=== PATIENT | female | born 1945 | race Caucasian/White ===

== ENCOUNTER 2016-10-17 06:35 | Inpatient (IN) | payer OTHER ==
[~2016-10-17] VITALS: Ht 165.1 cm; Wt 129.3 kg
[~2016-10-17 06:35] MED LIST: ACETAMINOPHEN325 M1 PO; ALEVE220 MG PO; AMLODIPINE BES2.5 MG PO; Bactrim,Septra DS 80 PO; CEFDINIR300 MG PO; CEFTIN250 MG PO; CENTRUM SILVER1 EAC4 PO; CHOLESTYRAMINE; CHOLESTYRAMINE210 GM PO; DUONEB 2.5-0.5 M3 ML AEROSOL; ERGOCALCIF50000 UNIT PO; FLORASTOR250 MG PO; Feosol PO; GLUCO BURST37.5 GM PO; HUMULIN N100 UNITS/ SC; HUMULIN NP100 UNIT/1 SC; HYDROCHLOROTHIA25 MG PO; Hydrodiuril,Oretic,E PO; KETOCONAZOLE60 GM TP; LEVAQUIN750 MG PO; LEVOXYL125 MCG PO; LINEZOLID600 MG PO; LOMOTIL TABLET1 EACH PO; LYRICA150 MG PO; LYRICA50 MG PO; LYRICA75 MG PO; Levothroid,Synthroid PO; NOVOLIN N100 UNITS/ SC; NOVOLOG PE100 UNITS/ SC; OXYCODONE-APAP1 EACH PO; QUESTRAN4 GM/PACKE PO; SANTYL30 GM TP; SYNTHROID200 MCG PO; VANCOMYCIN1 GM/150 M IV; VITAMIN D2000 UNI1 PO; Vancocin Oral Soluti PO; Vitamin D, Drisdol PO; ZESTRIL,PRINIVI40 MG PO; ZESTRIL40 MG PO; ZINC SULFATE220 M1 PO; Zestril,Prinivil PO
[2016-10-17 07:08] VITALS: BP 118/56
[2016-10-17 07:16] LABS: POINT-OF-CARE METER ID UU14174212
[2016-10-17 08:25] LABS: METH RESISTANT S AUREUS PCR NEGATIVE (NEGATIVE)
[2016-10-17 08:28] LABS: PROBE CHECK PASS; SPECIMEN PROCESSING CONTROL PASS
[2016-10-17 09:54] LABS: POINT-OF-CARE METER ID UU13113675; POINT-OF-CARE USER ID ADMSLT55
[2016-10-17 14:51] VITALS: BP 142/62
[2016-10-17 16:23] LABS: POINT-OF-CARE METER ID UU14188577
[2016-10-17 19:57] VITALS: BP 152/68
[2016-10-17 22:20] LABS: POINT-OF-CARE METER ID UU14149397
[2016-10-18] VITALS (7 sets, daily range): BP systolic 126–155; BP diastolic 61–75
[2016-10-18 22:39] LABS: POINT-OF-CARE METER ID UU14188577
[2016-10-19 06:40] LABS: POINT-OF-CARE METER ID UU14149397
[2016-10-19 07:35] VITALS: BP 154/67
[2016-10-19 11:55] LABS: POINT-OF-CARE METER ID UU14149397
[2016-10-19 16:52] VITALS: BP 144/64
[2016-10-19 21:53] LABS: POINT-OF-CARE METER ID UU14149397
[2016-10-20 00:12] VITALS: BP 155/71
[2016-10-20 08:12] VITALS: BP 155/67
[2016-10-20] MEDS ORDERED: CIPROFLOXACIN500 M1 PO (11:12)
[2016-10-20] MEDS ORDERED: MOTRIN400 MG PO (11:13)
[2016-10-20 11:38] LABS: POINT-OF-CARE METER ID UU14149397; POINT-OF-CARE USER ID BHSLRM
== END 2016-10-20 15:29 | DRG 574 ==
LOC: SDC 06:35 → 3EAST 10:18 → 2SOUTH 10:18 → SDC 14:34 → 3EAST 14:44 → SDC 15:34 → 3EAST 10-20 15:29
PROVIDERS: Surgery Plastic and Reconstructive Surgery
DX: L97.529 Non-pressure chronic ulcer of other part of left foot with unspecified severity (principal); L03.116 Cellulitis of left lower limb; E11.9 Type 2 diabetes mellitus without complications; Z89.422 Acquired absence of other left toe(s); I10 Essential (primary) hypertension; E03.9 Hypothyroidism, unspecified; G62.9 Polyneuropathy, unspecified
CPT/HCPCS: 82948; 87641; 97530 GO; 97530 GP; C1763; J0131; J0690; J1650; J1815; J2405; J3010; J7050; J7120

== ENCOUNTER 2017-04-30 09:48 | Inpatient (IN) | payer OTHER ==
[~2017-04-30] VITALS: Ht 167.6 cm; Wt 143.5 kg
[~2017-04-30 09:48] MED LIST changes: +CIPROFLOXACIN500 M1 PO; +MOTRIN400 MG PO
[2017-04-30 10:31] LABS: ADD MIUA? YES; BILIRUBIN NEGATIVE; BLOOD SMALL; COLOR YELLOW ((YELLOW)); GLUCOSE (STRIP) NEGATIVE; KETONES NEGATIVE; LEUKOCYTES LARGE; NITRITE NEGATIVE; PROTEIN (STRIP) 100; SPECIFIC GRAVITY 1.019 (1.000-1.030); UROBILINOGEN 0.2 MG/DL (0.2-1.0)
[2017-04-30 10:41] LABS: BACTERIA RARE /HPF; EPITHELIAL CELLS RARE /HPF; MUCUS NONE SEEN /LPF; RED BLOOD CELLS 30-40 /HPF (0-5); UCUL ADDED? YES; WHITE BLOOD CELLS TNTC /HPF (0-5)
[2017-04-30 11:15] LABS: MEAN PLAT.VOLUME 10.5 uM^3 (9.5-12.4); PLATELET COUNT 211 K/uL (156-360)
[2017-04-30 11:25] LABS: CHLORIDE 104 mEq/L (99-109); MCH 28.5 PG (29.0-34.0); MCHC 32.5 G/DL (30.0-36.0); MCV 87.8 FL (83-99); RBC DIS.WIDTH-CV 13.4 % (11.8-14.6)
[2017-04-30 11:26] LABS: POTASSIUM 4.7 mEq/L (3.7-5.4); SODIUM 138 mEq/L (136-147)
[2017-04-30 11:27] LABS: GLUCOSE 264 mg/dL (70-99)
[2017-04-30 11:29] LABS: ANION GAP 11 MEQ/L (2-14)
[2017-04-30 11:31] LABS: GFR ESTIMATE (CALCULATED) 31 mL/min/
[2017-04-30 11:32] LABS: UREA NITROGEN (BUN) 31 mg/dL (9-23)
[2017-04-30 16:09] LABS: POINT-OF-CARE METER ID UU13113725
[2017-04-30 16:16] VITALS: BP 131/61
[2017-04-30 21:54] LABS: POINT-OF-CARE METER ID UU13113725
[2017-05-01 00:12] VITALS: BP 132/61
[2017-05-01 06:05] LABS: POINT-OF-CARE METER ID UU13113725
[2017-05-01 07:25] VITALS: BP 105/53
[2017-05-01 10:45] LABS: POINT-OF-CARE METER ID UU13113725
[2017-05-01 16:05] LABS: POINT-OF-CARE METER ID UU13113725
[2017-05-01 16:09] VITALS: BP 110/56
[2017-05-01 20:54] LABS: POINT-OF-CARE METER ID UU13113725
[2017-05-01 22:52] VITALS: BP 113/64
[2017-05-02 06:15] LABS: POINT-OF-CARE METER ID UU13113725
[2017-05-02 06:30] LABS: HEMATOCRIT 33.7 % (36.0-46.0); MCH 28.5 PG (29.0-34.0); MCHC 31.8 G/DL (30.0-36.0); MCV 89.6 FL (83-99); MEAN PLAT.VOLUME 10.5 uM^3 (9.5-12.4); PLATELET COUNT 174 K/uL (156-360); RBC DIS.WIDTH-CV 13.7 % (11.8-14.6); RED BLOOD COUNT 3.76 M/uL (3.80-5.20); WHITE BLOOD COUNT 11.8 K/uL (4.1-10.2)
[2017-05-02 06:56] LABS: ALKALINE PHOSPHATASE 61 IU/L (3-129); ANION GAP 10 MEQ/L (2-14); CHLORIDE 106 MEQ/L (99-109); GFR ESTIMATE (CALCULATED) 43 mL/min/; GLUCOSE 139 mg/dL (70-99); POTASSIUM 4.3 MEQ/L (3.7-5.4); SAMPLE HEMOLYSIS CHECK 0; SAMPLE ICTERIC CHECK 0; SAMPLE LIPEMIA CHECK 0; SODIUM 141 MEQ/L (136-147); TOTAL BILIRUBIN 0.6 MG/DL (0.0-1.0); UREA NITROGEN (BUN) 22 mg/dL (9-23)
[2017-05-02 07:10] VITALS: BP 137/65
[2017-05-02] MEDS ORDERED: CEFDINIR300 MG PO (07:49)
[2017-05-02 11:21] LABS: POINT-OF-CARE METER ID UU13113725
[2017-05-02 12:44] VITALS: BP 158/70
[2017-05-02 16:29] VITALS: BP 157/69
[2017-05-02 19:19] VITALS: BP 149/69
[2017-05-02 21:30] LABS: POINT-OF-CARE METER ID UU13113725
[2017-05-02 23:25] VITALS: BP 127/80
[2017-05-03 06:40] LABS: HEMATOCRIT 33.6 % (36.0-46.0); MCV 90.3 FL (83-99); MEAN PLAT.VOLUME 11.1 uM^3 (9.5-12.4); PLATELET COUNT 200 K/uL (156-360); RBC DIS.WIDTH-CV 13.3 % (11.8-14.6); RBC DIS.WIDTH-SD 43.8 % (39-53); RED BLOOD COUNT 3.72 M/uL (3.80-5.20); WHITE BLOOD COUNT 12.2 K/uL (4.1-10.2)
[2017-05-03 07:04] LABS: ALKALINE PHOSPHATASE 68 IU/L (3-129); ANION GAP 9 MEQ/L (2-14); CHLORIDE 108 MEQ/L (99-109); GFR ESTIMATE (CALCULATED) 47 mL/min/; GLUCOSE 142 mg/dL (70-99); POTASSIUM 4.2 MEQ/L (3.7-5.4); SAMPLE HEMOLYSIS CHECK 0; SAMPLE ICTERIC CHECK 0; SAMPLE LIPEMIA CHECK 0; SODIUM 144 MEQ/L (136-147); TOTAL BILIRUBIN 0.6 MG/DL (0.0-1.0); UREA NITROGEN (BUN) 19 mg/dL (9-23)
[2017-05-03 07:14] VITALS: BP 156/69
[2017-05-03 11:31] LABS: POINT-OF-CARE METER ID UU13113725
[2017-05-03 11:32] VITALS: BP 142/65
== END 2017-05-03 13:57 | DRG 690 ==
LOC: EME → EDBD 09:48 → EME 09:48 → ENRESERV 12:32 → 5EAST 12:33 → EDOF 12:33 → ENRESERV 13:05 → 5EAST 14:59 → ENPENDDIS 05-02 → 5EAST 05-03 13:57
PROVIDERS: Emergency Medicine; Internal Medicine
DX: N39.0 Urinary tract infection, site not specified (principal); E66.01 Morbid (severe) obesity due to excess calories; Z68.43 Body mass index [BMI] 50.0-59.9, adult; Z89.412 Acquired absence of left great toe; Z89.422 Acquired absence of other left toe(s); E03.9 Hypothyroidism, unspecified; E11.22 Type 2 diabetes mellitus with diabetic chronic kidney disease; E11.40 Type 2 diabetes mellitus with diabetic neuropathy, unspecified; I12.9 Hypertensive chronic kidney disease with stage 1 through stage 4 chronic kidney disease, or unspecified chronic kidney disease; T81.89XA Other complications of procedures, not elsewhere classified, initial encounter; N18.9 Chronic kidney disease, unspecified; N17.9 Acute kidney failure, unspecified; L03.116 Cellulitis of left lower limb; E78.5 Hyperlipidemia, unspecified; Z79.4 Long term (current) use of insulin; Y83.5 Amputation of limb(s) as the cause of abnormal reaction of the patient, or of later complication, without mention of misadventure at the time of the procedure
CPT/HCPCS: 73720; 80048; 80053; 81003; 82948; 83605; 85027; 87040; 87086; 94799; 99281; 99285; J0696; J1644; J1815; J1956; J2270; J7030; J7050

== ENCOUNTER 2018-01-08 10:52 | Inpatient (IN) | payer OTHER ==
[~2018-01-08] VITALS: Ht 165.1 cm; Wt 151.1 kg
[2018-01-08 11:27] LABS: HEMATOCRIT 38.3 % (36.0-46.0); MCH 28.2 PG (29.0-34.0); MCHC 31.3 G/DL (30.0-36.0); MCV 89.9 FL (83-99); PLATELET COUNT 318 K/uL (156-360); RBC DIS.WIDTH-CV 13.7 % (11.8-14.6); RBC DIS.WIDTH-SD 44.5 % (39-53); RED BLOOD COUNT 4.26 M/uL (3.80-5.20); WHITE BLOOD COUNT 12.7 K/uL (4.1-10.2)
[2018-01-08 11:36] LABS: CHLORIDE 107 mEq/L (99-109); POTASSIUM 5.7 mEq/L (3.7-5.4); SODIUM 143 mEq/L (136-147)
[2018-01-08 11:37] LABS: GLUCOSE 238 mg/dL (70-99)
[2018-01-08 11:41] LABS: CREATININE 1.5 mg/dL (0.6-1.3); GFR ESTIMATE (CALCULATED) 36 mL/min/
[2018-01-08 11:42] LABS: UREA NITROGEN (BUN) 33 mg/dL (9-23)
[2018-01-08 13:31] LABS: TROP-I INTERPRETATION NEGATIVE; TROPONIN-I < 0.01 ng/mL (0.0-0.30)
[2018-01-08] MEDS ORDERED: LASIX20 MG PO (19:47)
[2018-01-08 22:00] LABS: TROP-I INTERPRETATION NEGATIVE; TROPONIN-I < 0.01 ng/mL (0.0-0.30)
[2018-01-09] VITALS: BP 134/72
[2018-01-09 02:50] LABS: HEMATOCRIT 38.4 % (36.0-46.0); HEMOGLOBIN 11.7 G/DL (11.9-15.5); MCH 27.3 PG (29.0-34.0); MCHC 30.5 G/DL (30.0-36.0); MCV 89.5 FL (83-99); PLATELET COUNT 329 K/uL (156-360); RBC DIS.WIDTH-CV 13.7 % (11.8-14.6); RBC DIS.WIDTH-SD 44.6 % (39-53); RED BLOOD COUNT 4.29 M/uL (3.80-5.20); WHITE BLOOD COUNT 12.2 K/uL (4.1-10.2)
[2018-01-09 03:07] LABS: ALBUMIN 3.4 g/dL (3.2-4.8)
[2018-01-09 03:08] LABS: POTASSIUM 4.7 mEq/L (3.7-5.4)
[2018-01-09 03:09] LABS: CHLORIDE 104 mEq/L (99-109); POTASSIUM 4.9 mEq/L (3.7-5.4); SODIUM 143 mEq/L (136-147)
[2018-01-09 03:10] LABS: TOTAL PROTEIN 6.8 g/dL (6.4-8.3)
[2018-01-09 03:11] LABS: GLUCOSE 152 mg/dL (70-99)
[2018-01-09 03:12] LABS: TOTAL BILIRUBIN 0.4 mg/dL (0.0-1.0)
[2018-01-09 03:13] LABS: ALKALINE PHOSPHATASE 75 IU/L (3-129)
[2018-01-09 03:15] LABS: CREATININE 1.6 mg/dL (0.6-1.3); GFR ESTIMATE (CALCULATED) 34 mL/min/
[2018-01-09 03:16] LABS: ALT (GPT) 33 IU/L (3-49); AST (GOT) 46 IU/L (2-34); DIRECT BILIRUBIN 0.2 mg/dL (0.0-0.3); UREA NITROGEN (BUN) 34 mg/dL (9-23)
[2018-01-09 03:23] LABS: TROP-I INTERPRETATION NEGATIVE; TROPONIN-I < 0.01 ng/mL (0.0-0.30)
[2018-01-09 04:00] VITALS: BP 124/63
[2018-01-09 08:18] VITALS: BP 130/59
[2018-01-09 08:25] LABS: APPEARANCE SL.HAZY ((CLEAR)); BILIRUBIN NEGATIVE; BLOOD NEGATIVE; COLOR STRAW ((YELLOW)); GLUCOSE (STRIP) NEGATIVE; KETONES NEGATIVE; LEUKOCYTES MODERATE; NITRITE NEGATIVE; PROTEIN (STRIP) NEGATIVE; SPECIFIC GRAVITY 1.014 (1.000-1.030); UROBILINOGEN 0.2 MG/DL (0.2-1.0)
[2018-01-09 08:36] LABS: BACTERIA 1+ /HPF; EPITHELIAL CELLS RARE /HPF; MUCUS TRACE /LPF; RED BLOOD CELLS 0-5 /HPF (0-5); UCUL ADDED? YES; WHITE BLOOD CELLS 30-40 /HPF (0-5)
[2018-01-09 12:01] VITALS: BP 129/62
[2018-01-09 16:12] VITALS: BP 135/70
[2018-01-09 19:45] VITALS: BP 139/70
[2018-01-10 01:26] VITALS: BP 128/68
[2018-01-10 03:28] VITALS: BP 146/74
[2018-01-10 05:25] LABS: BASOPHIL (%) 0.7 % (0-1); BASOPHIL COUNT 0.1 K/uL (0-0.1); EOSINOPHIL COUNT 0.3 K/uL (0-0.3); HEMATOCRIT 36.2 % (36.0-46.0); IMMATURE GRANULOCYTE (%) 0.8 % (0.0-0.7); LYMPHOCYTE COUNT 1.9 K/uL (1.0-2.8); MCH 27.3 PG (29.0-34.0); MCHC 30.4 G/DL (30.0-36.0); MCV 89.8 FL (83-99); MONOCYTE (%) 14.3 % (3-12); MONOCYTE COUNT 1.6 K/uL (0-0.8); NEUTROPHIL (%) 64.2 % (45-76); PLATELET COUNT 291 K/uL (156-360); RBC DIS.WIDTH-CV 13.6 % (11.8-14.6); RBC DIS.WIDTH-SD 44.7 % (39-53); RED BLOOD COUNT 4.03 M/uL (3.80-5.20); WHITE BLOOD COUNT 10.9 K/uL (4.1-10.2)
[2018-01-10 05:57] LABS: CHLORIDE 104 MEQ/L (99-109); CREATININE 1.7 MG/DL (0.6-1.3); GFR ESTIMATE (CALCULATED) 31 mL/min/; POTASSIUM 4.5 MEQ/L (3.7-5.4); SODIUM 141 MEQ/L (136-147); UREA NITROGEN (BUN) 36 mg/dL (9-23)
[2018-01-10 06:02] LABS: GLUCOSE 112 mg/dL (70-99)
[2018-01-10 12:49] VITALS: BP 131/67
[2018-01-10 14:28] LABS: INTER. NORMALIZED RATIO 1.3
[2018-01-10 14:31] LABS: PTT 29.3 SEC (25-37)
[2018-01-10 16:06] VITALS: BP 122/61
[2018-01-10 19:37] VITALS: BP 140/69
[2018-01-10 23:50] VITALS: BP 147/76
[2018-01-11 04:01] VITALS: BP 143/71
[2018-01-11 05:50] LABS: BASOPHIL (%) 0.4 % (0-1); EOSINOPHIL (%) 2.9 % (0-5); EOSINOPHIL COUNT 0.3 K/uL (0-0.3); HEMATOCRIT 37.3 % (36.0-46.0); HEMOGLOBIN 11.2 G/DL (11.9-15.5); LYMPHOCYTE (%) 16.1 % (15-42); LYMPHOCYTE COUNT 1.8 K/uL (1.0-2.8); MCH 26.6 PG (29.0-34.0); MCV 88.6 FL (83-99); MONOCYTE (%) 15.5 % (3-12); MONOCYTE COUNT 1.7 K/uL (0-0.8); NEUTROPHIL (%) 64.1 % (45-76); PLATELET COUNT 339 K/uL (156-360); RBC DIS.WIDTH-CV 13.3 % (11.8-14.6); RBC DIS.WIDTH-SD 43.3 % (39-53); RED BLOOD COUNT 4.21 M/uL (3.80-5.20); WHITE BLOOD COUNT 10.9 K/uL (4.1-10.2)
[2018-01-11 06:14] LABS: CHLORIDE 101 MEQ/L (99-109); CREATININE 1.7 MG/DL (0.6-1.3); GFR ESTIMATE (CALCULATED) 31 mL/min/; GLUCOSE 93 mg/dL (70-99); POTASSIUM 4.5 MEQ/L (3.7-5.4); SODIUM 141 MEQ/L (136-147); UREA NITROGEN (BUN) 36 mg/dL (9-23)
[2018-01-11 07:47] VITALS: BP 134/65
[2018-01-11 09:50] VITALS: BP 128/77
[2018-01-11 15:58] VITALS: BP 145/72
[2018-01-11 19:58] VITALS: BP 124/63
[2018-01-12] VITALS (7 sets, daily range): BP systolic 115–145; BP diastolic 54–67
[2018-01-12 05:37] LABS: BASOPHIL (%) 0.6 % (0-1); BASOPHIL COUNT 0.1 K/uL (0-0.1); EOSINOPHIL (%) 2.3 % (0-5); EOSINOPHIL COUNT 0.3 K/uL (0-0.3); HEMATOCRIT 36.7 % (36.0-46.0); HEMOGLOBIN 11.2 G/DL (11.9-15.5); IMMATURE GRANULOCYTE (%) 1.1 % (0.0-0.7); LYMPHOCYTE (%) 16.4 % (15-42); LYMPHOCYTE COUNT 1.9 K/uL (1.0-2.8); MCHC 30.5 G/DL (30.0-36.0); MCV 88.4 FL (83-99); MONOCYTE (%) 16.8 % (3-12); MONOCYTE COUNT 1.9 K/uL (0-0.8); NEUTROPHIL (%) 62.8 % (45-76); NEUTROPHIL COUNT 7.1 K/uL (1.8-6.4); PLATELET COUNT 305 K/uL (156-360); RBC DIS.WIDTH-CV 13.5 % (11.8-14.6); RED BLOOD COUNT 4.15 M/uL (3.80-5.20); WHITE BLOOD COUNT 11.3 K/uL (4.1-10.2)
[2018-01-12 06:01] LABS: ALBUMIN 3.1 G/DL (3.2-4.8); ALKALINE PHOSPHATASE 59 IU/L (3-129); ALT (GPT) 22 IU/L (3-49); AST (GOT) 36 IU/L (2-34); CHLORIDE 103 MEQ/L (99-109); CREATININE 1.7 MG/DL (0.6-1.3); GFR ESTIMATE (CALCULATED) 31 mL/min/; GLUCOSE 113 mg/dL (70-99); POTASSIUM 4.4 MEQ/L (3.7-5.4); SODIUM 143 MEQ/L (136-147); TOTAL BILIRUBIN 0.5 MG/DL (0.0-1.0); TOTAL PROTEIN 6.1 G/DL (6.4-8.3); UREA NITROGEN (BUN) 40 mg/dL (9-23)
[2018-01-13 04:48] VITALS: BP 128/63
[2018-01-13 08:00] VITALS: BP 122/56
[2018-01-13 09:48] LABS: CHLORIDE 101 MEQ/L (99-109); CREATININE 1.7 MG/DL (0.6-1.3); GFR ESTIMATE (CALCULATED) 31 mL/min/; GLUCOSE 105 mg/dL (70-99); POTASSIUM 4.6 MEQ/L (3.7-5.4); SODIUM 142 MEQ/L (136-147); UREA NITROGEN (BUN) 43 mg/dL (9-23)
[2018-01-13 11:24] VITALS: BP 127/70
[2018-01-13] MEDS ORDERED: FUROSEMIDE40 MG PO (12:45)
== END 2018-01-13 15:53 | disposition home or self-care (01) | DRG 189 ==
LOC: EME 10:52 → EDOF 20:38 → 5SOUTH 20:38 → EDOF 20:38 → ENRESERV 20:42 → 5SOUTH 21:49
PROVIDERS: Hospitalist; Internal Medicine; Internal Medicine Hematology & Oncology; Internal Medicine Nephrology; Physician Assistant
PROC: B246ZZZ Ultrasonography of Right and Left Heart (ICD-10-PCS; principal; 2018-01-09)
PROC: 0DBU3ZX Excision of Omentum, Percutaneous Approach, Diagnostic (ICD-10-PCS; 2018-01-11)
DX: J81.1 Chronic pulmonary edema (principal); J96.01 Acute respiratory failure with hypoxia; E66.01 Morbid (severe) obesity due to excess calories; Z68.43 Body mass index [BMI] 50.0-59.9, adult; C78.6 Secondary malignant neoplasm of retroperitoneum and peritoneum; E03.9 Hypothyroidism, unspecified; N17.9 Acute kidney failure, unspecified; N14.1 Nephropathy induced by other drugs, medicaments and biological substances; T50.8X5A Adverse effect of diagnostic agents, initial encounter; T50.1X5A Adverse effect of loop [high-ceiling] diuretics, initial encounter; E87.5 Hyperkalemia; E11.22 Type 2 diabetes mellitus with diabetic chronic kidney disease; I12.9 Hypertensive chronic kidney disease with stage 1 through stage 4 chronic kidney disease, or unspecified chronic kidney disease; N18.3 Chronic kidney disease, stage 3 (moderate); J43.9 Emphysema, unspecified; E78.5 Hyperlipidemia, unspecified; E11.621 Type 2 diabetes mellitus with foot ulcer; L97.521 Non-pressure chronic ulcer of other part of left foot limited to breakdown of skin; L30.8 Other specified dermatitis; E11.51 Type 2 diabetes mellitus with diabetic peripheral angiopathy without gangrene; I87.8 Other specified disorders of veins; L97.819 Non-pressure chronic ulcer of other part of right lower leg with unspecified severity; Z86.19 Personal history of other infectious and parasitic diseases; E11.65 Type 2 diabetes mellitus with hyperglycemia; E11.40 Type 2 diabetes mellitus with diabetic neuropathy, unspecified; R79.1 Abnormal coagulation profile; I89.0 Lymphedema, not elsewhere classified; R32 Unspecified urinary incontinence; Z86.14 Personal history of Methicillin resistant Staphylococcus aureus infection; K57.90 Diverticulosis of intestine, part unspecified, without perforation or abscess without bleeding; Z89.412 Acquired absence of left great toe; Z90.49 Acquired absence of other specified parts of digestive tract; Z82.49 Family history of ischemic heart disease and other diseases of the circulatory system; Z80.3 Family history of malignant neoplasm of breast; Z80.42 Family history of malignant neoplasm of prostate
CPT/HCPCS: 71045; 71046; 71275; 74176; 77012; 80048; 80053; 80076; 81003; 82948; 84132 91; 84484; 85025; 85027; 85379; 85610; 85730; 87086; 88305; 88341 TC; 88342 TC; 93005; 93306; 93970; 94640; 94799; 97597; 99202; 99212 25; 99281; 99285; G0378; J1644; J1815; J1940; J3010

== ENCOUNTER 2018-01-29 13:41 | Inpatient (IN) | payer OTHER ==
[~2018-01-29] VITALS: Ht 165.1 cm; Wt 157.7 kg
[~2018-01-29 13:41] MED LIST changes: +FUROSEMIDE40 MG PO; +LASIX20 MG PO
[2018-01-29 14:52] LABS: HEMATOCRIT 37.1 % (36.0-46.0); HEMOGLOBIN 11.2 G/DL (11.9-15.5); MCH 26.9 PG (29.0-34.0); MCHC 30.2 G/DL (30.0-36.0); PLATELET COUNT 323 K/uL (156-360); RBC DIS.WIDTH-CV 14.3 % (11.8-14.6); RBC DIS.WIDTH-SD 45.8 % (39-53); RED BLOOD COUNT 4.17 M/uL (3.80-5.20)
[2018-01-29 15:02] LABS: CHLORIDE 106 mEq/L (99-109); POTASSIUM 5.6 mEq/L (3.7-5.4); SODIUM 143 mEq/L (136-147)
[2018-01-29 15:04] LABS: GLUCOSE 213 mg/dL (70-99)
[2018-01-29 15:08] LABS: CREATININE 1.9 mg/dL (0.6-1.3); GFR ESTIMATE (CALCULATED) 28 mL/min/
[2018-01-29 15:09] LABS: UREA NITROGEN (BUN) 56 mg/dL (9-23)
[2018-01-29 15:11] LABS: TROP-I INTERPRETATION NEGATIVE; TROPONIN-I < 0.01 ng/mL (0.0-0.30)
[2018-01-29] MEDS ORDERED: QUESTRAN PACKET4 GM PO (18:34)
[2018-01-29] MEDS ORDERED: TYLENOL EXTRA500 MG PO (18:35)
[2018-01-29 19:52] VITALS: BP 98/51
[2018-01-29 20:58] VITALS: BP 110/66
[2018-01-29 21:57] LABS: TROP-I INTERPRETATION NEGATIVE; TROPONIN-I 0.01 ng/mL (0.0-0.30)
[2018-01-30] VITALS (7 sets, daily range): BP systolic 122–160; BP diastolic 61–74
[2018-01-30 02:31] LABS: HEMOGLOBIN 11.3 G/DL (11.9-15.5); MCH 27.8 PG (29.0-34.0); MCHC 30.5 G/DL (30.0-36.0); MCV 91.1 FL (83-99); PLATELET COUNT 286 K/uL (156-360); RBC DIS.WIDTH-CV 14.2 % (11.8-14.6); RBC DIS.WIDTH-SD 47.3 % (39-53); RED BLOOD COUNT 4.06 M/uL (3.80-5.20); WHITE BLOOD COUNT 12.7 K/uL (4.1-10.2)
[2018-01-30 02:48] LABS: CHLORIDE 106 mEq/L (99-109); POTASSIUM 5.7 mEq/L (3.7-5.4); SODIUM 145 mEq/L (136-147)
[2018-01-30 02:50] LABS: GLUCOSE 178 mg/dL (70-99)
[2018-01-30 02:54] LABS: CREATININE 1.7 mg/dL (0.6-1.3); GFR ESTIMATE (CALCULATED) 31 mL/min/
[2018-01-30 02:55] LABS: UREA NITROGEN (BUN) 55 mg/dL (9-23)
[2018-01-30 03:01] LABS: TROP-I INTERPRETATION NEGATIVE; TROPONIN-I < 0.01 ng/mL (0.0-0.30)
[2018-01-31 03:16] VITALS: BP 129/62
[2018-01-31 06:13] LABS: HEMATOCRIT 38.6 % (36.0-46.0); HEMOGLOBIN 11.3 G/DL (11.9-15.5); MCH 26.3 PG (29.0-34.0); MCHC 29.3 G/DL (30.0-36.0); MCV 89.8 FL (83-99); PLATELET COUNT 270 K/uL (156-360); RBC DIS.WIDTH-CV 14.2 % (11.8-14.6); RBC DIS.WIDTH-SD 46.1 % (39-53); WHITE BLOOD COUNT 8.1 K/uL (4.1-10.2)
[2018-01-31 06:36] LABS: ALBUMIN 3.1 G/DL (3.2-4.8); CHLORIDE 103 MEQ/L (99-109); CREATININE 1.6 MG/DL (0.6-1.3); GFR ESTIMATE (CALCULATED) 34 mL/min/; GLUCOSE 168 mg/dL (70-99); PHOSPHORUS 5.2 mg/dL (2.5-4.9); POTASSIUM 4.7 MEQ/L (3.7-5.4); SODIUM 144 MEQ/L (136-147); UREA NITROGEN (BUN) 52 mg/dL (9-23)
[2018-01-31 07:25] VITALS: BP 99/51
[2018-01-31 10:30] LABS: TYPE OF FLUID PARACENTESIS
[2018-01-31 11:07] LABS: BODY FLUID GLUCOSE 189 MG/DL; BODY FLUID PROTEIN 3.8 G/DL
[2018-01-31 11:37] LABS: APPEARANCE HAZY-YELLOW; BODY FLUID EOSINOPHILS 0 % (0-25); BODY FLUID RBC'S 8000 /MM^3 (0-100); BODY FLUID WBC'S 1163 /MM^3 (0-500); MONONUCLEAR WBC'S 98 %; POLYNUCLEAR WBC'S 2 % (0-25)
[2018-01-31 13:49] LABS: BODY FLUID LDH 251 IU/L
[2018-01-31 15:00] VITALS: BP 98/52
[2018-01-31 19:01] VITALS: BP 125/64
[2018-01-31 22:35] VITALS: BP 109/51
[2018-02-01 03:20] VITALS: BP 130/60
[2018-02-01 06:36] LABS: BASOPHIL (%) 0.2 % (0-1); EOSINOPHIL (%) 0.4 % (0-5); HEMATOCRIT 36.1 % (36.0-46.0); HEMOGLOBIN 10.8 G/DL (11.9-15.5); IMMATURE GRANULOCYTE (%) 0.7 % (0.0-0.7); LYMPHOCYTE (%) 12.5 % (15-42); LYMPHOCYTE COUNT 1.4 K/uL (1.0-2.8); MCH 26.5 PG (29.0-34.0); MCHC 29.9 G/DL (30.0-36.0); MCV 88.7 FL (83-99); MONOCYTE (%) 12.5 % (3-12); MONOCYTE COUNT 1.4 K/uL (0-0.8); NEUTROPHIL (%) 73.7 % (45-76); NEUTROPHIL COUNT 8.1 K/uL (1.8-6.4); PLATELET COUNT 313 K/uL (156-360); RBC DIS.WIDTH-CV 13.9 % (11.8-14.6); RBC DIS.WIDTH-SD 44.5 % (39-53); RED BLOOD COUNT 4.07 M/uL (3.80-5.20)
[2018-02-01 07:11] LABS: CHLORIDE 103 MEQ/L (99-109); CREATININE 1.5 MG/DL (0.6-1.3); GFR ESTIMATE (CALCULATED) 36 mL/min/; POTASSIUM 4.3 MEQ/L (3.7-5.4); SODIUM 145 MEQ/L (136-147); UREA NITROGEN (BUN) 59 mg/dL (9-23)
[2018-02-01 07:13] LABS: GLUCOSE 75 mg/dL (70-99)
[2018-02-01 07:30] VITALS: BP 119/63
[2018-02-01 11:30] VITALS: BP 130/59
[2018-02-01 15:00] VITALS: BP 123/59
[2018-02-01 19:13] VITALS: BP 116/57
[2018-02-01 23:58] VITALS: BP 113/55
[2018-02-02 03:53] VITALS: BP 129/62
[2018-02-02 07:48] VITALS: BP 130/65
[2018-02-02 16:37] VITALS: BP 133/68
[2018-02-02 23:26] VITALS: BP 100/53
[2018-02-03 05:59] LABS: BASOPHIL (%) 0.3 % (0-1); EOSINOPHIL (%) 0.6 % (0-5); EOSINOPHIL COUNT 0.1 K/uL (0-0.3); HEMATOCRIT 40.4 % (36.0-46.0); HEMOGLOBIN 12.2 G/DL (11.9-15.5); LYMPHOCYTE (%) 13.4 % (15-42); LYMPHOCYTE COUNT 1.6 K/uL (1.0-2.8); MCH 26.8 PG (29.0-34.0); MCHC 30.2 G/DL (30.0-36.0); MCV 88.6 FL (83-99); MONOCYTE (%) 14.1 % (3-12); MONOCYTE COUNT 1.7 K/uL (0-0.8); NEUTROPHIL (%) 70.6 % (45-76); NEUTROPHIL COUNT 8.4 K/uL (1.8-6.4); PLATELET COUNT 331 K/uL (156-360); RBC DIS.WIDTH-CV 14.2 % (11.8-14.6); RBC DIS.WIDTH-SD 45.8 % (39-53); RED BLOOD COUNT 4.56 M/uL (3.80-5.20); WHITE BLOOD COUNT 11.9 K/uL (4.1-10.2)
[2018-02-03 06:26] LABS: ALBUMIN 3.2 G/DL (3.2-4.8); ALKALINE PHOSPHATASE 75 IU/L (3-129); ALT (GPT) 23 IU/L (3-49); AST (GOT) 36 IU/L (2-34); CHLORIDE 103 MEQ/L (99-109); CREATININE 1.4 MG/DL (0.6-1.3); GFR ESTIMATE (CALCULATED) 39 mL/min/; SODIUM 143 MEQ/L (136-147); TOTAL BILIRUBIN 0.4 MG/DL (0.0-1.0); TOTAL PROTEIN 6.1 G/DL (6.4-8.3); UREA NITROGEN (BUN) 55 mg/dL (9-23)
[2018-02-03 06:27] LABS: GLUCOSE 104 mg/dL (70-99); POTASSIUM 5.2 MEQ/L (3.7-5.4)
[2018-02-03 07:31] VITALS: BP 125/88
[2018-02-03 16:20] VITALS: BP 106/54
[2018-02-03 21:43] VITALS: BP 130/63
[2018-02-04] VITALS (7 sets, daily range): BP systolic 121–135; BP diastolic 57–74
[2018-02-04] MEDS ORDERED: DITROPAN5 MG PO (12:25)
[2018-02-05 02:13] VITALS: BP 131/71
[2018-02-05 05:29] VITALS: BP 138/72
[2018-02-05 06:13] LABS: BASOPHIL (%) 0.4 % (0-1); BASOPHIL COUNT 0.1 K/uL (0-0.1); EOSINOPHIL (%) 2.2 % (0-5); EOSINOPHIL COUNT 0.3 K/uL (0-0.3); HEMATOCRIT 40.9 % (36.0-46.0); HEMOGLOBIN 12.1 G/DL (11.9-15.5); IMMATURE GRANULOCYTE (%) 1.4 % (0.0-0.7); LYMPHOCYTE (%) 13.1 % (15-42); LYMPHOCYTE COUNT 1.7 K/uL (1.0-2.8); MCH 25.9 PG (29.0-34.0); MCHC 29.6 G/DL (30.0-36.0); MCV 87.6 FL (83-99); MONOCYTE (%) 15.2 % (3-12); NEUTROPHIL (%) 67.7 % (45-76); NEUTROPHIL COUNT 8.8 K/uL (1.8-6.4); PLATELET COUNT 336 K/uL (156-360); RBC DIS.WIDTH-CV 14.1 % (11.8-14.6); RBC DIS.WIDTH-SD 44.9 % (39-53); RED BLOOD COUNT 4.67 M/uL (3.80-5.20)
[2018-02-05 06:38] LABS: CHLORIDE 103 MEQ/L (99-109); CREATININE 1.3 MG/DL (0.6-1.3); GFR ESTIMATE (CALCULATED) 43 mL/min/; GLUCOSE 94 mg/dL (70-99); POTASSIUM 4.9 MEQ/L (3.7-5.4); SODIUM 142 MEQ/L (136-147); UREA NITROGEN (BUN) 59 mg/dL (9-23)
[2018-02-05 07:31] VITALS: BP 146/68
[2018-02-05 11:24] VITALS: BP 101/51
[2018-02-05] MEDS ORDERED: Ocean Nasal 0.65% BOTH NARES (14:40)
[2018-02-05] MEDS ORDERED: BUMETANIDE1 MG PO (14:40)
[2018-02-05] MEDS ORDERED: Zeasorb Antifungal T TP (14:41)
[2018-02-05] MEDS ORDERED: ASPIRIN81 M2 PO (14:47)
[2018-02-05 16:14] VITALS: BP 133/61
== END 2018-02-05 18:05 | DRG 189 ==
LOC: EME 13:41 → EDOF 18:26 → 5EAST 18:26 → ENRESERV 18:28 → 5EAST 19:45
PROVIDERS: Emergency Medicine; Hospitalist; Internal Medicine; Internal Medicine Nephrology; Internal Medicine Pulmonary Disease
PROC: 0W9G3ZZ Drainage of Peritoneal Cavity, Percutaneous Approach (ICD-10-PCS; principal; 2018-01-31)
DX: J96.01 Acute respiratory failure with hypoxia (principal); E66.01 Morbid (severe) obesity due to excess calories; S82.832A Other fracture of upper and lower end of left fibula, initial encounter for closed fracture; J44.0 Chronic obstructive pulmonary disease with (acute) lower respiratory infection; I10 Essential (primary) hypertension; E78.5 Hyperlipidemia, unspecified; E03.9 Hypothyroidism, unspecified; J44.9 Chronic obstructive pulmonary disease, unspecified; I50.30 Unspecified diastolic (congestive) heart failure; C56.9 Malignant neoplasm of unspecified ovary; C78.6 Secondary malignant neoplasm of retroperitoneum and peritoneum; R18.0 Malignant ascites; I73.9 Peripheral vascular disease, unspecified; N18.3 Chronic kidney disease, stage 3 (moderate); E11.22 Type 2 diabetes mellitus with diabetic chronic kidney disease; E11.65 Type 2 diabetes mellitus with hyperglycemia; E11.649 Type 2 diabetes mellitus with hypoglycemia without coma; E11.621 Type 2 diabetes mellitus with foot ulcer; I13.0 Hypertensive heart and chronic kidney disease with heart failure and stage 1 through stage 4 chronic kidney disease, or unspecified chronic kidney disease; I89.0 Lymphedema, not elsewhere classified; I87.2 Venous insufficiency (chronic) (peripheral); E87.5 Hyperkalemia; N39.0 Urinary tract infection, site not specified; N17.9 Acute kidney failure, unspecified; Z68.43 Body mass index [BMI] 50.0-59.9, adult; Z85.528 Personal history of other malignant neoplasm of kidney; Z89.411 Acquired absence of right great toe; Z89.412 Acquired absence of left great toe; Z99.81 Dependence on supplemental oxygen; Z85.43 Personal history of malignant neoplasm of ovary; Z79.4 Long term (current) use of insulin; B96.20 Unspecified Escherichia coli [E. coli] as the cause of diseases classified elsewhere; E11.40 Type 2 diabetes mellitus with diabetic neuropathy, unspecified; S82.435A Nondisplaced oblique fracture of shaft of left fibula, initial encounter for closed fracture; W18.30XA Fall on same level, unspecified, initial encounter; X50.9XXA Other and unspecified overexertion or strenuous movements or postures, initial encounter; Y92.239 Unspecified place in hospital as the place of occurrence of the external cause; Z88.1 Allergy status to other antibiotic agents; I27.20 Pulmonary hypertension, unspecified; E11.51 Type 2 diabetes mellitus with diabetic peripheral angiopathy without gangrene; R26.9 Unspecified abnormalities of gait and mobility; C74.90 Malignant neoplasm of unspecified part of unspecified adrenal gland; I50.32 Chronic diastolic (congestive) heart failure; R32 Unspecified urinary incontinence; J18.9 Pneumonia, unspecified organism; J98.11 Atelectasis
CPT/HCPCS: 49083; 71045; 71250; 73564; 76705; 78582; 80048; 80053; 80069; 81003; 82945; 82948; 83615 91; 83880; 84132 91; 84157; 84484; 85025; 85027; 87070; 87075; 87205; 88108; 89051; 93005; 93970; 94799; 99202; 99281; 99284; A9539; A9540; J0696; J1644; J1815; J1940; J3010; J7512

== ENCOUNTER → 2018-02-12 | Outpatient (CLI) | payer OTHER ==
[~2018-02-12] MED LIST changes: +ASPIRIN81 M2 PO; +BUMETANIDE1 MG PO; +DITROPAN5 MG PO; +Ocean Nasal 0.65% BOTH NARES; +QUESTRAN PACKET4 GM PO; +TYLENOL EXTRA500 MG PO; +Zeasorb Antifungal T TP
== END | disposition home or self-care (01) ==
LOC: RAD 08:15
PROC: 0W9G3ZZ Drainage of Peritoneal Cavity, Percutaneous Approach (ICD-10-PCS; principal; 2018-02-12)
DX: R18.8 Other ascites (principal); C56.9 Malignant neoplasm of unspecified ovary; C79.9 Secondary malignant neoplasm of unspecified site
CPT/HCPCS: 49083

== ENCOUNTER → 2018-02-22 | Outpatient (CLI) | payer OTHER | END | disposition home or self-care (01) | LOC: RAD 08:30 | PROC: 0W9G3ZZ Drainage of Peritoneal Cavity, Percutaneous Approach (ICD-10-PCS; principal; 2018-02-22) | DX: R18.8 Other ascites (principal) | CPT/HCPCS: 49083 ==

== ENCOUNTER 2018-03-05 15:58 | Inpatient (IN) | payer OTHER ==
[~2018-03-05] VITALS: Ht 162.6 cm; Wt 144.9 kg
[2018-03-05 17:15] LABS: COMMENTS - BLOOD GASES A+C+; DEVICE NC; O2 FLOW 3 L/MIN; SITE LR; TOTAL RESP RATE 18 resp/min
[2018-03-05 17:16] LABS: O2 SATURATION (CALCULATED) 89.8 % (95-99); PCO2 63 mm Hg (35-45); PO2 60 mm Hg (80-100); pH 7.26 (7.35-7.45)
[2018-03-05 17:17] LABS: BASE EXCESS 0 mEq/L (-3 to +3); BICARBONATE 28.3 mEq/L (22-26); CARBOXY HGB 2.1 % (0-5); METHEMOGLOBIN 0.8 % (0-1.5)
[2018-03-05 17:24] LABS: BASOPHIL (%) 0.4 % (0-1); BASOPHIL COUNT 0.1 K/uL (0-0.1); EOSINOPHIL (%) 0.2 % (0-5); HEMATOCRIT 39.1 % (36.0-46.0); HEMOGLOBIN 12.1 G/DL (11.9-15.5); IMMATURE GRANULOCYTE (%) 1.3 % (0.0-0.7); LYMPHOCYTE (%) 6.5 % (15-42); MCH 26.1 PG (29.0-34.0); MCHC 30.9 G/DL (30.0-36.0); MCV 84.4 FL (83-99); MONOCYTE (%) 9.1 % (3-12); MONOCYTE COUNT 1.4 K/uL (0-0.8); NEUTROPHIL (%) 82.5 % (45-76); NEUTROPHIL COUNT 12.9 K/uL (1.8-6.4); PLATELET COUNT 396 K/uL (156-360); RBC DIS.WIDTH-CV 14.7 % (11.8-14.6); RBC DIS.WIDTH-SD 45.1 % (39-53); RED BLOOD COUNT 4.63 M/uL (3.80-5.20); WHITE BLOOD COUNT 15.7 K/uL (4.1-10.2)
[2018-03-05 17:36] LABS: INTER. NORMALIZED RATIO 1.2
[2018-03-05 17:37] LABS: ALBUMIN 2.9 g/dL (3.2-4.8); CHLORIDE 96 mEq/L (99-109)
[2018-03-05 17:38] LABS: PTT 21.5 SEC (25-37); SODIUM 135 mEq/L (136-147)
[2018-03-05 17:40] LABS: GLUCOSE 227 mg/dL (70-99); TOTAL PROTEIN 6.6 g/dL (6.4-8.3)
[2018-03-05 17:42] LABS: TOTAL BILIRUBIN 0.4 mg/dL (0.0-1.0)
[2018-03-05 17:43] LABS: ALKALINE PHOSPHATASE 86 IU/L (3-129); CREATININE 2.6 mg/dL (0.6-1.3); GFR ESTIMATE (CALCULATED) 19 mL/min/
[2018-03-05 17:45] LABS: AST (GOT) 38 IU/L (2-34)
[2018-03-05 17:46] LABS: ALT (GPT) 21 IU/L (3-49)
[2018-03-05 17:47] LABS: LIPASE 36 U/L (1.0-51.0); POTASSIUM 6.9 mEq/L (3.7-5.4); UREA NITROGEN (BUN) 107 mg/dL (9-23)
[2018-03-05 17:52] LABS: TROP-I INTERPRETATION NEGATIVE; TROPONIN-I < 0.01 ng/mL (0.0-0.30)
[2018-03-05] MEDS ORDERED: OCEAN NASAL 0.645 ML BOTH NARES (23:05)
[2018-03-05] MEDS ORDERED: LO-DOSE ASPIRIN81 M2 PO (23:08)
[2018-03-05] MEDS ORDERED: DULCOLAX10 MG PR (23:27)
[2018-03-06 00:11] VITALS: BP 116/59
[2018-03-06 07:39] LABS: THYROTROPIN (TSH) 12.5 MIU/L (0.4-5.5)
[2018-03-07] MEDS ORDERED: MORPHINE CON20 MG/M1 PO (13:48)
== END 2018-03-07 18:30 | DRG 375 ==
LOC: EME 15:58 → ENRESERV 23:03 → 5EAST 23:27 → EDOF 23:27 → 5EAST 23:49
PROVIDERS: Emergency Medicine
PROC: 0W9G30Z Drainage of Peritoneal Cavity with Drainage Device, Percutaneous Approach (ICD-10-PCS; principal; 2018-03-05)
DX: C78.6 Secondary malignant neoplasm of retroperitoneum and peritoneum (principal); N17.9 Acute kidney failure, unspecified; Z68.43 Body mass index [BMI] 50.0-59.9, adult; E87.2 Acidosis; C56.2 Malignant neoplasm of left ovary; R18.0 Malignant ascites; E78.5 Hyperlipidemia, unspecified; Z51.5 Encounter for palliative care; Z66 Do not resuscitate; N18.3 Chronic kidney disease, stage 3 (moderate); E11.22 Type 2 diabetes mellitus with diabetic chronic kidney disease; E66.01 Morbid (severe) obesity due to excess calories; E87.5 Hyperkalemia; J44.9 Chronic obstructive pulmonary disease, unspecified; G89.3 Neoplasm related pain (acute) (chronic); K59.00 Constipation, unspecified; E03.9 Hypothyroidism, unspecified; I12.9 Hypertensive chronic kidney disease with stage 1 through stage 4 chronic kidney disease, or unspecified chronic kidney disease; R09.02 Hypoxemia; Z88.1 Allergy status to other antibiotic agents; Z79.4 Long term (current) use of insulin; Z79.82 Long term (current) use of aspirin; Z90.49 Acquired absence of other specified parts of digestive tract
CPT/HCPCS: 36600; 49083; 80053; 81003; 83690; 84439; 84443; 84484; 85025; 85610; 85730; 94799; 99281; 99285; J1815; J2060